=== PATIENT | male | born 2000 | race Two or more races ===

== ENCOUNTER 2025-02-15 08:51 | Emergency (ER) | payer OTHER ==
[~2025-02-15] VITALS: Ht 167.6 cm; Wt 74.8 kg
[2025-02-15 11:50] LABS: BASO % 0.2 % (0.1-1.2); EOS % 1.7 % (0.7-7.0); HEMATOCRIT 46.5 % (40.1-51.0); HEMOGLOBIN 15.8 g/dL (13.7-17.5); LYMPH # 1.34 (1.18-3.74); LYMPH % 11.7 % (19.3-53.1); MEAN CORPUSCULAR HEMOGLOBIN 30.9 pg (25.6-32.2); MONO # 1.01 (0.24-0.82); MONO % 8.8 % (4.7-12.5); NEUT % 77.3 % (34.0-71.1); PLATELET COUNT 192 K/uL (163-369); RED BLOOD COUNT 5.11 M/uL (4.63-6.08); RED CELL DISTRIBUTION WIDTH 12.2 % (11.6-14.4)
== END 2025-02-15 14:42 ==
LOC: ER 09:15
PROVIDERS: General Practice
DX: J06.9 Acute upper respiratory infection, unspecified (principal)

== ENCOUNTER 2025-08-26 19:51 | Emergency (ER) | payer OTHER ==
[~2025-08-26] VITALS: Ht 167.6 cm; Wt 80.7 kg
[2025-08-26] MEDS ORDERED: GUAIFENESIN 200 MG/10 ML BLIST.PACK PO STA (20:20)
[2025-08-26] MEDS ORDERED: ACETAMINOPHEN 500 MG GEL..CAP PO STA (20:20)
[2025-08-26] MEDS ORDERED: FAMOTIDINE/PF 20 MG/2 ML VIAL IV STA (20:21)
[2025-08-26] MEDS ORDERED: ONDANSETRON HCL 2 MG/ML VIAL IV STA (20:21)
[2025-08-26] MEDS ORDERED: 0.9 % SODIUM CHLORIDE 500 ML IV STA (20:21)
[2025-08-26] MEDS ORDERED: ACETAMINOPHEN 500 MG GEL..CAP PO ONE (21:03)
[2025-08-26] MEDS ORDERED: ONDANSETRON HCL 2 MG/ML VIAL ONE (21:03)
[2025-08-26] MEDS ORDERED: FAMOTIDINE/PF 20 MG/2 ML VIAL ONE (21:04)
[2025-08-26] MEDS ORDERED: GUAIFENESIN 200 MG/10 ML BLIST.PACK PO ONE (21:04)
[2025-08-26 21:32] LABS: BASO % 0.2 % (0.1-1.2); EOS # 0.01 (0.04-0.54); EOS % 0.2 % (0.7-7.0); LYMPH # 0.71 (1.18-3.74); LYMPH % 12.3 % (19.3-53.1); MEAN PLATELET VOLUME 10.90 fl (9.4-12.4); MONO # 0.64 (0.24-0.82); MONO % 11.1 % (4.7-12.5); NEUT # 4.41 (1.56-6.13); NEUT % 76.0 % (34.0-71.1); RED CELL DISTRIBUTION WIDTH 12.0 % (11.6-14.4)
[2025-08-26 22:00] LABS: COVID-19 AG NEGATIVE (NEGATIVE)
[2025-08-26 22:04] LABS: ALT/SGPT 28.0 U/L (12-78); AST/SGOT 18.0 U/L (15-37); BILIRUBIN TOTAL 0.4 mg/dL (0.3-1.2); BUN CREA RATIO 10.0 (7.0-25.0); CREATININE SERUM 1.01 mg/dL (0.70-1.30); GFR 89.29; GLOBULINA 3.4 G/DL (2.4-3.5); GLUCOSE FASTING 103.0 mg/dL (65-100); OSMOLALITY SERUM 279.0 MOSM/KG (275-295)
[2025-08-26] MEDS ORDERED: ZITHROMAX500 MG PO (22:36)
[2025-08-26] MEDS ORDERED: ACETAMINOPHEN500 M1 PO (22:36)
[2025-08-26] MEDS ORDERED: ALLER-TEC10 MG PO (22:36)
[2025-08-26] MEDS ORDERED: MUCINEX DM ER1 EAC1 PO (22:36)
== END 2025-08-26 23:04 | disposition home or self-care (01) ==
LOC: ER 19:52
PROVIDERS: General Practice
DX: J10.1 Influenza due to other identified influenza virus with other respiratory manifestations (principal); B34.8 Other viral infections of unspecified site; Z20.822 Contact with and (suspected) exposure to COVID-19; Z88.8 Allergy status to other drugs, medicaments and biological substances